=== PATIENT | female | born 1995 | race Caucasian/White ===

== ENCOUNTER 2017-01-22 09:07 | Emergency (ER) | payer BC, OTHER ==
[~2017-01-22] VITALS: Ht 157.5 cm; Wt 74.6 kg
[~2017-01-22 09:07] MED LIST: ABL/5 PO; FLUO20CA35 PO
[2017-01-22 09:12] VITALS: TEMP 36.9; Ht 157.5 cm; Wt 74.6 kg
[2017-01-22] MEDS ORDERED: SERT-234 PO (09:55)
--- NOTE | 2017-01-22 10:02 | EMERGENCY ROOM VISIT NOTE ---
History Report prepared by [place]: Roland Espinoza Under the Supervision of: Dr. Kelly Lebron M.D. First contact with patient: 09:26 Chief Complaint: ABDOMINAL PAIN Stated Complaint: LOWER ABD PAIN History of Present Illness The patient is a 21 year old female who presents to the Emergency Room with complaints of constant "cramping" abdominal pain beginning last night. The patient states that she began to feel nauseous and vomited a little last night. She notes that when she woke up this morning, she had lower abdominal pain. She reports that she went to the bathroom, but her symptoms got worse. The patient states that she has had an IUD for the past year and a half. She denies any problems urinating. She notes that she is sexually active but does not have a history of STDs. Source of History: patient Onset: last night Position: abdomen Quality: cramping Timing: constant Associated Symptoms: + nausea, + vomiting, No urinary symptoms Review of Systems See HPI for pertinent positives & negatives. A total of 10 systems reviewed and were otherwise negative. Past Medical & Surgical Surgical Problems: (1) H/O foot surgery Family History Patient reports no known family medical history. Social History Smoking Status: Never Smoker Marital Status: single Occupation Status: student Current/Historical Medications Scheduled Aripiprazole (Abilify), 1 TAB PO DAILY Sertraline (Zoloft), 100 MG PO DAILY Allergies Coded Allergies: No Known Allergies (Unverified , 01/22/17) Physical Exam Vital Signs Date Time Temp Pulse Resp B/P (MAP) Pulse Ox O2 Delivery O2 Flow Rate FiO2 01/22/17 13:25 78 16 105/56 97 01/22/17 11:47 69 16 110/59 98 Room Air 01/22/17 10:57 66 18 100/56 98 Room Air 01/22/17 09:12 36.9 80 15 111/77 97 Room Air Physical Exam Vital signs reviewed. General: Well-appearing, in no significant distress. HEENT: No scleral icterus, PERRLA, neck supple. Atraumatic. Cardiovascular: Regular rate and rhythm, no extra sounds. Pulmonary: Clear to auscultation bilaterally, normal work of breathing. Abdomen: Soft, nondistended, positive bowel sounds, mild suprapubic abdominal tenderness, no rebound, no guarding Musculoskeletal: Atraumatic, no peripheral edema. Neurologic: Patient awake alert and oriented x 3 Skin: Warm, dry, no rash Medical Decision & Procedures ER Provider Diagnostic Interpretation: Radiology results as stated below per my review and radiologist interpretation: PELVIC ULTRASOUND, TRANSABDOMINAL AND TRANSVAGINAL HISTORY: Left-sided pelvic pain. ovarian cyst-L? IUD placement COMPARISON: None. FINDINGS: Uterus: 9.5 x 2.7 x 4.4 cm. Endometrial stripe: The intrauterine device appears to be in good position. The endometrium measures 4 mm in thickness. Right ovary: 5.6 x 4.5 x 4.6 cm. The ovary demonstrates normal color flow. There is a dominant complex 4.1 x 3.6 x 2.8 cm cyst. This contains internal septations and favors a hemorrhagic cyst. Left ovary: Normal in size and demonstrates normal color flow. Dominant 2.7 cm cyst. Miscellaneous:Small to moderate amount of pelvic free fluid. IMPRESSION: 1. A dominant 4.1 cm right ovarian cyst which contains internal septations and favors a hemorrhagic cyst. Follow-up pelvic ultrasound in 6-8 weeks is recommended to ensure resolution. 2. Small to moderate amount of pelvic free fluid which may represent a ruptured hemorrhagic cyst. 3. A 2.7 cm left ovarian simple cyst. 4. Normal color flow within the bilateral ovaries. 5. The intrauterine device appears to be in good position. Electronically signed by: Cleveland Rodriguez M.D. 01/22/2017 12:27 PM Laboratory Results 01/22/17 10:40 Red Blood Count 4.69, Mean Corpuscular Volume 88.5, Mean Corpuscular Hemoglobin 29.6, Mean Corpuscular Hemoglobin Concent 33.5, Mean Platelet Volume 10.5, Neutrophils (%) (Auto) 63.4, Lymphocytes (%) (Auto) 26.1, Monocytes (%) (Auto) 8.3, Eosinophils (%) (Auto) 1.0, Basophils (%) (Auto) 0.3, Neutrophils # (Auto) 4.41, Lymphocytes # (Auto) 1.82, Monocytes # (Auto) 0.58, Eosinophils # (Auto) 0.07, Basophils # (Auto) 0.02 01/22/17 10:40 Test 01/22/17 09:30 01/22/17 10:40 Urine Color YELLOW Urine Appearance CLEAR (CLEAR) Urine pH 5.5 (4.5-7.5) Urine Specific [place] 1.014 (1.000-1.030) Urine Protein NEG (NEG) Urine Glucose (UA) NEG (NEG) Urine Ketones NEG (NEG) Urine Occult Blood NEG (NEG) Urine Nitrite NEG (NEG) Urine Bilirubin NEG (NEG) Urine Urobilinogen NEG (NEG) Urine Leukocyte Esterase NEG (NEG) Urine WBC (Auto) 1-5 /hpf (0-5) Urine RBC (Auto) 0-4 /hpf (0-4) Urine Hyaline Casts (Auto) 0 /lpf (0-5) Urine Epithelial Cells (Auto) >30 /lpf (0-5) Urine Bacteria (Auto) NEG (NEG) Urine Test NEG (NEG) White Blood Count 6.96 K/uL (4.8-10.8) Red Blood Count 4.69 M/uL (4.2-5.4) Hemoglobin 13.9 g/dL (12.0-16.0) Hematocrit 41.5 % (37-47) Mean Corpuscular Volume 88.5 fL (80-100) Mean Corpuscular Hemoglobin 29.6 pg (25-34) Mean Corpuscular Hemoglobin Concent 33.5 g/dl (32-36) Platelet Count 230 K/uL (130-400) Mean Platelet Volume 10.5 fL (7.4-10.4) Neutrophils (%) (Auto) 63.4 % Lymphocytes (%) (Auto) 26.1 % Monocytes (%) (Auto) 8.3 % Eosinophils (%) (Auto) 1.0 % Basophils (%) (Auto) 0.3 % Neutrophils # (Auto) 4.41 K/uL (1.4-6.5) Lymphocytes # (Auto) 1.82 K/uL (1.2-3.4) Monocytes # (Auto) 0.58 K/uL (0.11-0.59) Eosinophils # (Auto) 0.07 K/uL (0-0.5) Basophils # (Auto) 0.02 K/uL (0-0.2) RDW Standard Deviation 39.7 fL (36.4-46.3) RDW Coefficient of Variation 12.4 % (11.5-14.5) Immature Granulocyte % (Auto) 0.9 % Immature Granulocyte # (Auto) 0.06 K/uL (0.00-0.02) Anion Gap 6.0 mmol/L (3-11) Est Creatinine Clear Calc Drug Dose 120.5 ml/min Estimated GFR () 143.1 Estimated GFR (Non- 123.5 BUN/Creatinine Ratio 17.5 (10-20) Calcium Level 8.9 mg/dl (8.5-10.1) Total Bilirubin 0.2 mg/dl (0.2-1) Direct Bilirubin < 0.1 mg/dl (0-0.2) Aspartate Amino Transf (AST/SGOT) 13 U/L (15-37) Alanine Aminotransferase (ALT/SGPT) 24 U/L (12-78) Alkaline Phosphatase 71 U/L (45-117) Total Protein 7.6 gm/dl (6.4-8.2) Albumin 3.8 gm/dl (3.4-5.0) Laboratory results per my review. Medications Administered Medications (Trade) Dose Ordered Sig/Tee Route Start Time Stop Time Status Last Admin Dose Admin Sodium Chloride 1,000 ml @ 999 mls/hr Q1H1M STAT IV 01/22/17 10:37 01/22/17 11:37 DC 01/22/17 10:52 999 MLS/HR Ketorolac Tromethamine (Toradol Inj) 30 mg NOW STAT IV 01/22/17 10:37 01/22/17 10:39 DC 01/22/17 10:52 30 MG Ondansetron HCl (Zofran Inj) 4 mg NOW STAT IV 01/22/17 10:37 01/22/17 10:39 DC 01/22/17 10:51 4 MG ED Course 0928: Past medical records reviewed. The patient was evaluated in room B12. A complete history and physical examination was performed. 1037: Zofran Inj 4mg IV, Toradol Inj 30mg IV, Sodium Chloride 1000 ml @ 999 mls/ hr IV 1306: Upon reevaluation, the patient appeared to have improvement of her symptoms. I discussed findings with her. She verbalized agreement of the treatment plan. The patient was discharged home. Medical Decision The patient is a 21 year old female who presents to the ED with complaints of abdominal pain. Differentials include ovarian cyst, ovarian torsion, kidney stone, dislodged IUD, appendicitis, and UTI. This patient was evaluated and appeared to be in no significant distress. IV access was obtained and laboratory work was drawn. The patient was placed on the computer support specialist instructor. The patient was hydrated with normal saline solution. She was given IV Toradol for her discomfort. Ultrasound of the pelvis was performed and reveals the IUD in good position. There are bilateral ovarian cyst with a hemorrhagic left ovarian cyst. Patient was advised of the findings. I suspect this is the etiology of her pain. UA is negative, laboratory work is normal. test is negative. Patient will be discharged to follow-up with [facility] [employer] and will return to the ER for worsening of symptoms or any medical concerns. Blood Pressure Screening Patient's blood pressure: Normal blood pressure Impression Primary Impression: Hemorrhagic cyst of left ovary Additional Impression: Right ovarian cyst Scribe Attestation The scribe's documentation has been prepared under my direction and personally reviewed by me in its entirety. I confirm that the note above accurately reflects all work, treatment, procedures, and medical decision making performed by me. Departure Information Dispostion Home / Self-Care Referrals No Doctor, Assigned (PCP) Forms HOME CARE DOCUMENTATION FORM, IMPORTANT VISIT INFORMATION Patient Instructions My [facility] Additional Instructions Diagnosis: Hemorrhagic ovarian cyst on the left, ovarian cyst on the right. Ibuprofen 600mg every 6 hours as needed or pain with food. Drink plenty of clear fluids. Follow-up with [facility] within the next several weeks for reevaluation. Return to the ER immediately for worsening of symptoms or any medical concerns. Problem Qualifiers
[2017-01-22 10:30] LABS: URINE APPEARANCE CLEAR (CLEAR); URINE BILIRUBIN NEG (NEG); URINE COLOR YELLOW; URINE EPITHELIAL CELL AUTO >30 /lpf (0-5); URINE NITRITE NEG (NEG); URINE PH 5.5 (4.5-7.5); URINE SPECIFIC GRAVITY 1.014 (1.000-1.030); UROBILINOGEN NEG (NEG); ZZUR CULT IF INDIC CLEAN CATCH NO
[2017-01-22 10:31] LABS: MANUAL MICROSCOPIC REQUIRED? NO; REVIEW REQ? NO
[2017-01-22] MEDS ORDERED: SODIUM CHLORIDE 0.9% 1000ML 1,000 ML IV STA (10:37)
[2017-01-22] MEDS ORDERED: ONDANSETRON INJ 2 MG/ML 2 ML VIAL IV STA (10:37)
[2017-01-22] MEDS ORDERED: KETOROLAC TROMETHAMINE 30 MG/ML VIAL IV STA (10:37)
[2017-01-22 11:05] LABS: BASO % 0.3 %; BASO ABS # 0.02 K/uL (0-0.2); COMPLETE YES; HEMATOCRIT 41.5 % (37-47); IG% 0.9 %; LYMPH % 26.1 %; LYMPH ABS # 1.82 K/uL (1.2-3.4); MEAN CELL VOLUME 88.5 fL (80-100); MEAN CORPUSCULAR HEMOGLOBIN 29.6 pg (25-34); MEAN CORPUSCULAR HGB CONC 33.5 g/dl (32-36); MEAN PLATELET VOLUME 10.5 fL (7.4-10.4); MONO % 8.3 %; NEUT % 63.4 %; PLATELET COUNT 230 K/uL (130-400); RED BLOOD COUNT 4.69 M/uL (4.2-5.4); WHITE BLOOD COUNT 6.96 K/uL (4.8-10.8)
[2017-01-22 11:13] LABS: ALT/SGPT 24 U/L (12-78); AST/SGOT 13 U/L (15-37); BLOOD UREA NITROGEN 12 mg/dl (7-18); BUN/CREATININE RATIO 17.5 (10-20); CALCIUM 8.9 mg/dl (8.5-10.1); CARBON DIOXIDE 28 mmol/L (21-32); CHLORIDE 104 mmol/L (98-107); CREATININE 0.71 mg/dl (0.60-1.20); GLUCOSE 83 mg/dl (70-99); POTASSIUM 4.1 mmol/L (3.5-5.1); SODIUM 138 mmol/L (136-145)
[2017-01-22 11:15] LABS: ALKALINE PHOSPHATASE 71 U/L (45-117)
--- NOTE | 2017-01-22 12:29 | DIAGNOSTIC IMAGING REPORT ---
PELVIC ULTRASOUND, TRANSABDOMINAL AND TRANSVAGINAL HISTORY: Left-sided pelvic pain. ovarian cyst-L? IUD placement COMPARISON: None. FINDINGS: Uterus: 9.5 x 2.7 x 4.4 cm. Endometrial stripe: The intrauterine device appears to be in good position. The endometrium measures 4 mm in thickness. Right ovary: 5.6 x 4.5 x 4.6 cm. The ovary demonstrates normal color flow. There is a dominant complex 4.1 x 3.6 x 2.8 cm cyst. This contains internal septations and favors a hemorrhagic cyst. Left ovary: Normal in size and demonstrates normal color flow. Dominant 2.7 cm cyst. Miscellaneous:Small to moderate amount of pelvic free fluid. IMPRESSION: 1. A dominant 4.1 cm right ovarian cyst which contains internal septations and favors a hemorrhagic cyst. Follow-up pelvic ultrasound in 6-8 weeks is recommended to ensure resolution. 2. Small to moderate amount of pelvic free fluid which may represent a ruptured hemorrhagic cyst. 3. A 2.7 cm left ovarian simple cyst. 4. Normal color flow within the bilateral ovaries. 5. The intrauterine device appears to be in good position. Electronically signed by: Cleveland Rodriguez M.D. 01/22/2017 12:27 PM Dictated Date/Time: 01/22/2017 12:24 PM
[2017-01-22 13:25] VITALS: BP 105/56; PULSE 78; O2SAT 97
== END 2017-01-22 13:25 | disposition home or self-care (01) ==
LOC: C.EDB 09:10
DX: N83.202 Unspecified ovarian cyst, left side (principal); N83.201 Unspecified ovarian cyst, right side